=== PATIENT | female | born 1995 | race Caucasian/White ===

== ENCOUNTER 2019-04-10 14:41 | Emergency (ER) | payer BC ==
[~2019-04-10] VITALS: Ht 172.7 cm; Wt 72.6 kg
[~2019-04-10 14:41] MED LIST: ACETAMINOPHEN-1 EAC1 PO; APAP/CODEINE ELI5 ML PO; BACTRIM DS TAB1 EACH PO; CLONAZEPAM 1 MG1 M1 PO; COLACE 100 MG100 MG PO; CYMBALTA30 MG PO; ERYTHROMYCIN250 M1 PO; FLEXERIL PO; HYDROCODON-ACE1 EAC7 PO; HYDROCODONE-AP1 EAC6 PO; MEDROLDOSEPACK PO; NAPROSYN500 MG PO; OMEPRAZOLE40 MG PO; ONDANSETRON HCL4 M2 SUBLING; TORADOL 10 MG T10 MG PO; ULTRAM 50MG TAB50 MG PO; ZOFRAN ODT4 MG PO; ZOLOFT50 MG; ZPAK PO; ZYRTEC10 MG
[2019-04-10] MEDS ORDERED: REMERON15 MG PO (14:56)
[2019-04-10] MEDS ORDERED: XANAX 0.5 MG0.5 MG PO (14:57)
[2019-04-10 15:07] LABS: URINE BILIRUBIN NEGATIVE (Negative); URINE BLOOD 1+ (Negative); URINE CLARITY CLEAR; URINE COLOR YELLOW; URINE GLUCOSE-RANDOM NEGATIVE (Negative); URINE KETONES 2+ (Negative); URINE LEUKOCYTES-REFLEX NEGATIVE (Negative); URINE NITRITE-REFLEX NEGATIVE (Negative); URINE PROTEIN TRACE (Negative); URINE SPECIFIC GRAVITY 1.015 (1.005-1.030); URINE UROBILINOGEN 0.2 E.U./dl (0.2-1.0)
[2019-04-10 15:17] LABS: HEMATOCRIT 40.6 % (37.0-47.0); HEMOGLOBIN 14.1 gm/dL (12.0-15.0); MCH 30.9 pg (26.0-34.0); MCHC 34.6 g/dL (28.0-37.0); MCV 89.2 fL (80.0-100.0); MPV 8.4 fl. (7.2-11.1); NUCLEATED RBCS 0 /100WBC; PLATELET COUNT* 308 thou/uL (150-400); RBC 4.55 mil/uL (4.20-5.00); RDW-CV 12.4 % (10.5-14.5); WBC 15.7 thou/uL (4.0-11.0)
[2019-04-10 15:25] LABS: BACTERIA-REFLEX 1-9 Few /HPF (None Seen); CASTS None Seen /LPF (None Seen); CRYSTALS None Seen /LPF (None Seen); SQUAMOUS 0-3 Few /LPF (0-3); URINE RBC 0-2 Rare /HPF (0-2); URINE WBC-REFLEX 0-5 Rare /HPF (0-5)
[2019-04-10 15:26] LABS: CALCIUM 9.2 mg/dL (8.5-10.1); POTASSIUM 3.2 mmol/L (3.5-5.1)
[2019-04-10 15:30] LABS: ALBUMIN 4.2 g/dL (3.4-5.0); TOTAL BILIRUBIN 1.4 mg/dL (<0.1-1.0); TOTAL PROTEIN 7.7 g/dL (6.4-8.2)
[2019-04-10 15:52] LABS: ABSOLUTE LYMPHOCYTES 1.3 thou/uL (0.8-5.3); ABSOLUTE MONOCYTES 0.2 thou/uL (0.0-1.2); ABSOLUTE NEUTROPHILS 14.3 thou/uL (1.6-8.1); PLATELET ESTIMATE ADEQUATE
[2019-04-10] MEDS ORDERED: FLEXERIL PO (16:08)
[2019-04-10] MEDS ORDERED: PHENERGAN 25 MG25 M1 PO (16:08)
[2019-04-10] MEDS ORDERED: KLONOPIN1 MG PO (17:44)
[2019-04-10 18:04] VITALS: BP 138/80
== END 2019-04-10 18:04 | disposition home or self-care (01) ==
LOC: M.ERS 14:41
PROVIDERS: Nurse Practitioner Family
DX: T67.5XXA Heat exhaustion, unspecified, initial encounter (principal); E86.0 Dehydration; E87.6 Hypokalemia; R11.2 Nausea with vomiting, unspecified; Z76.0 Encounter for issue of repeat prescription; J45.909 Unspecified asthma, uncomplicated; Z90.49 Acquired absence of other specified parts of digestive tract; Z88.8 Allergy status to other drugs, medicaments and biological substances